=== PATIENT | male | born 1975 | race Two or more races ===

== ENCOUNTER 2022-06-17 17:26 | Emergency (ER) | payer MEDICAID, OTHER ==
[~2022-06-17] VITALS: Ht 165.1 cm; Wt 58.0 kg
[2022-06-17 19:51] VITALS: BP 122/68
[2022-06-17] MEDS ORDERED: TETANUS-DIPTH-ACEL PERTUSSIS 0.5ML SYR Tdap IM ONE (21:30)
[2022-06-17] MEDS ORDERED: cefTRIAXone SOD 1,000 MG VL IM ONE (21:45)
[2022-06-17] MEDS ORDERED: ACET-1158 PO (21:47)
[2022-06-17] MEDS ORDERED: CEPH-510 PO (21:47)
== END 2022-06-17 23:37 | disposition home or self-care (01) ==
LOC: ER 17:26
DX: S01.81XA Laceration without foreign body of other part of head, initial encounter (principal); F12.90 Cannabis use, unspecified, uncomplicated; F17.210 Nicotine dependence, cigarettes, uncomplicated; W22.8XXA Striking against or struck by other objects, initial encounter; Y93.89 Activity, other specified; Y92.89 Other specified places as the place of occurrence of the external cause; Y99.8 Other external cause status
CPT/HCPCS: 12002; 90471; 90715; 96372; 99284; J0696

== ENCOUNTER 2023-06-22 06:45 | Emergency (ER) | payer MEDICAID, OTHER ==
[~2023-06-22] VITALS: Ht 165.1 cm; Wt 70.4 kg
[~2023-06-22 06:45] MED LIST: ACET500T58 PO; CEPH-510 PO
[2023-06-22] MEDS: LIDOCAINE 2%HCL (LOCAL ANESTH.) INJ 20ML MDV ID ONE (07:30)
[2023-06-22 07:34] LABS: Basophils # (auto) 0.1 10 ^3/uL (0-0.2); Basophils % (auto) 0.8 % (0.0-2.0); Eosinophils # (auto) 0.2 10 ^3/uL (0-0.8); Eosinophils % (auto) 2.2 % (0.0-7.0); Hematocrit 42.8 % (41.0-53.0); Hemoglobin 14.3 g/dL (13.5-17.5); Lymphocytes % (auto) 30.4 % (10.0-50.0); Mean Corpuscular Hemoglobin 32.7 pg (28.0-32.0); Mean Corpuscular Hgb Conc. 33.4 g/dL (32.0-36.0); Mean Corpuscular Volume 97.8 fL (80.0-100.0); Monocytes # (auto) 0.9 10 ^3/uL (0-1.3); Monocytes % (auto) 9.2 % (0.0-12.0); Neutrophils # (auto) 5.6 10 ^3/uL (1.6-8.6); Neutrophils % (auto) 57.4 % (37.0-80.0); Nucleated Red Blood Cells % 0.1 %; Red Blood Cells 4.38 10^6/uL (4.5-5.90); Red Cell Distribution Width 13.5 % (11.8-14.3); White Blood Cell 9.8 10^3/uL (4.4-10.8)
[2023-06-22 07:43] LABS: Chloride 107 mmol/L (98-107); Sodium 138 mmol/L (136-145)
[2023-06-22 07:44] LABS: Anion Gap 7 (5-15); Calcium 9.2 mg/dL (8.5-10.1); Carbon Dioxide 24 mmol/L (20-30)
[2023-06-22 07:49] LABS: BUN/Creatinine Ratio 18.3 (10.0-20.0); Blood Urea Nitrogen 17 mg/dL (9-23); Glucose 119 mg/dL (74-106)
[2023-06-22] MEDS: METOCLOPRAMIDE HCL 5MG/ml INJ 2ml VIAL IV ONE (07:56)
[2023-06-22] MEDS: SODIUM CHLORIDE 0.9% 1,000 ML IV ONE (07:56)
[2023-06-22] MEDS: cefTRIAXone 1GM/50ML D5W 50 ML IV ONE ×2 (07:58→13:00)
[2023-06-22] MEDS: HYDROmorphone HCL 2 MG/ML VL/or syr IV ONE ×2 (07:58→12:15)
[2023-06-22 08:31] VITALS: PULSE 71; RESP 18; O2SAT 97
[2023-06-22] MEDS: NEOMYCIN-BACITRACIN-POLYM UNITDOSE PKG TOP OINT TOP ONE (09:49)
[2023-06-22] MEDS: TETANUS-DIPTH-ACEL PERTUSSIS 0.5ML SYR Tdap IM ONE (11:15)
[2023-06-22] MEDS: LIDOCAINE 2%HCL (LOCAL ANESTH.) INJ 20ML MDV ONE ×2 (12:02→12:13)
[2023-06-22] MEDS ORDERED: TRAM50TA2 PO (17:59)
[2023-06-22] MEDS ORDERED: AUG875T PO (17:59)
[2023-06-22] MEDS ORDERED: DICL50TA2 PO (17:59)
[2023-06-22 18:34] VITALS: PULSE 76; RESP 18; TEMP 98.7; O2SAT 96
== END 2023-06-22 17:55 | disposition home or self-care (01) ==
LOC: ER 06:45
DX: S51.832A Puncture wound without foreign body of left forearm, initial encounter (principal); S51.831A Puncture wound without foreign body of right forearm, initial encounter; S61.431A Puncture wound without foreign body of right hand, initial encounter; F17.210 Nicotine dependence, cigarettes, uncomplicated; F15.90 Other stimulant use, unspecified, uncomplicated; Z79.899 Other long term (current) drug therapy; W54.0XXA Bitten by dog, initial encounter; Y93.89 Activity, other specified; Y92.89 Other specified places as the place of occurrence of the external cause; Y99.8 Other external cause status
CPT/HCPCS: 12035; 12044; 36415; 73090; 73120; 80048; 85025; 90471; 90715; 96365; 96366; 96375; 96376; 99285; J0696; J1170; J2765

== ENCOUNTER 2023-06-24 08:33 | Emergency (ER) | payer SELFPAY ==
[~2023-06-24] VITALS: Ht 165.1 cm; Wt 60.0 kg
[~2023-06-24 08:33] MED LIST changes: +AUG875T PO; +DICL50TA2 PO; +TRAM50TA2 PO
[2023-06-24 09:29] VITALS: BP 114/55; PULSE 63; RESP 20; TEMP 97.6; O2SAT 98
== END 2023-06-24 09:35 | disposition home or self-care (01) ==
LOC: ER 08:33
DX: S61.411D Laceration without foreign body of right hand, subsequent encounter (principal); S51.812D Laceration without foreign body of left forearm, subsequent encounter; F17.210 Nicotine dependence, cigarettes, uncomplicated; Z79.2 Long term (current) use of antibiotics; Z79.899 Other long term (current) drug therapy; W54.0XXD Bitten by dog, subsequent encounter

== ENCOUNTER 2024-10-30 16:07 | Emergency (ER) | payer MEDICAID, OTHER ==
[~2024-10-30] VITALS: Ht 165.1 cm; Wt 60.3 kg
[2024-10-30 16:08] VITALS: TEMP 97.6
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
[2024-10-30 18:52] VITALS: BP 124/69; PULSE 54; RESP 18; O2SAT 96
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
[2024-10-30] MEDS ORDERED: NAPR-957 PO (19:38)
[2024-10-30] MEDS ORDERED: CYCL-839 PO (19:38)
== END 2024-10-30 20:25 | disposition home or self-care (01) ==
LOC: ER 16:07
DX: S16.1XXA Strain of muscle, fascia and tendon at neck level, initial encounter (principal); F17.210 Nicotine dependence, cigarettes, uncomplicated; F12.90 Cannabis use, unspecified, uncomplicated; Z79.899 Other long term (current) drug therapy; V89.2XXA Person injured in unspecified motor-vehicle accident, traffic, initial encounter; Y93.89 Activity, other specified; Y92.488 Other paved roadways as the place of occurrence of the external cause; Y99.8 Other external cause status
CPT/HCPCS: 72040